=== PATIENT | female | born 1940 ===

== ENCOUNTER 2018-02-15 07:59 | Day surgery (SDC) | payer MEDICARE ==
[~2018-02-15 07:59] MED LIST: Buffered Lidocaine 0.9% SYRIN* 5 ML/SYR SYRINGE INTRADERM ONE
[2018-02-15] MEDS ORDERED: ceFAZolin 2 GM PREMIX (*) 2 GM/50 ML BAG IVPB ONE (08:19)
[2018-02-15] MEDS ORDERED: Midazolam* 1 MG/ML 2 ML VIAL (2 MG) ONE (08:33)
[2018-02-15] MEDS ORDERED: fentaNYL* 50 MCG/ML 2 ML VIAL (100 MCG VIAL) ONE (08:33)
[2018-02-15] MEDS ORDERED: Bupivacaine 0.25% SDV* 30 ML ONE (09:11)
[2018-02-15] MEDS ORDERED: Famotidine IV* 10 MG/ML 2 ML (20 mg) ONE (09:38)
[2018-02-15] MEDS ORDERED: Dexamethasone IV* 4 MG/ML 1 ML (4 MG) ONE (09:38)
[2018-02-15] MEDS ORDERED: Ketorolac INJ* 30 MG/ML 1 ML VIAL ONE (09:38)
[2018-02-15] MEDS ORDERED: Ondansetron ODT TAB* 4 MG ONE (09:38)
[2018-02-15] MEDS ORDERED: Propofol* 10 MG/ML 20 ML BTL IV PUSH ONE (09:38)
[2018-02-15] MEDS ORDERED: Acetaminophen TAB* 325 MG PO PRN (10:12)
[2018-02-15] MEDS ORDERED: DiMENhydriNATE IV* 50 MG/ML VIAL IV PUSH PRN (10:12)
[2018-02-15] MEDS ORDERED: Ondansetron ODT TAB* 4 MG PO PRN (10:12)
[2018-02-15] MEDS ORDERED: PROCHLORPERAZINE INJ 5 MG/ML 2 ML VIAL IV PRN (10:12)
[2018-02-15] MEDS ORDERED: Ondansetron INJ* 2 MG/ML VIAL IV PRN (10:12)
[2018-02-15] MEDS ORDERED: diPHENhydraMINE IV* 50 MG/ML 1 ml VIAL (BENADRYL) IV PRN (10:12)
[2018-02-15] MEDS ORDERED: fentaNYL* 50 MCG/ML 2 ML VIAL (100 MCG VIAL) IV PRN (10:12)
[2018-02-15] MEDS ORDERED: Nalbuphine* 20 MG/ML 1 ML VIAL IV PRN (10:12)
[2018-02-15] MEDS ORDERED: Naloxone* 0.4 MG/ML 1 ML VIAL IV PRN (10:12)
[2018-02-15] MEDS ORDERED: HYDROcodone/ACETAMIN 5-325 MG* 1 TAB PO PRN (10:12)
[2018-02-15 12:07] VITALS: BP 166/86
--- NOTE | 2018-02-16 07:08 | OP ---
DATE OF OPERATION: 02/15/18 - [facility] DATE OF : 38 SURGEON: Jonathan Gaspar MD DRAFTER PATENT: Kathryn Ackerman NP ANESTHESIOLOGIST: Dr. Júnior Mcarthur. ANESTHESIA: General with local. PRE-OP DIAGNOSIS: Ventral incisional hernia. POST-OP DIAGNOSIS: Ventral incisional hernia. OPERATIVE PROCEDURE: Open repair with mesh using a Bard 8.[address] mesh. ESTIMATED BLOOD LOSS: Minimal. SPECIMEN: None. WOUND CLASSIFICATION: I. COMPLICATIONS: None. DRAINS: None. DESCRIPTION OF PROCEDURE: Written informed consent was obtained, the abdomen was marked with indelible ink and preoperative antibiotics were administered. The patient was taken to the operating room and placed in the supine position. Sequential compression devices and a warming blanket were applied. General anesthesia was administered. The abdomen was prepped and draped in usual sterile fashion. Time-out verification was completed. The hernia in question was several fingerbreadths above the midline and was rather small, but it was an obvious bulge on physical examination. There had been a previous primary repair of an epigastric hernia in this area several years ago. Marcaine 0.25% with 1% lidocaine with epinephrine was infiltrated extensively, and a vertical incision was made at about 4 cm and carried down through the subcutaneous tissue. Here we encountered a protuberant amount of fat in the subcutaneous tissue and this was dissected down to the fascial defect, at the midline which appeared to be about 2 cm in diameter. We were able to reduce this fat easily and developed a preperitoneal space using a combination of blunt and sharp dissection circumferentially around the hernia. The fascia here appear to be intact without evidence of associated smaller hernias. I do not believe that the peritoneal cavity was entered. Once this space had been developed, and with the history of primary repair, a decision was made to proceed with placement of a 8.4 cm circular piece of Bard Ventrio ST mesh, which was placed appropriately oriented in the preperitoneal space and sutured in 4 locations circumferentially around the mesh to the anterior abdominal wall using horizontal mattress 0 Vicryl sutures and then the associated straps were then cut. The mesh sat in the position nicely without wrinkling or folds and was adherent to the anterior abdominal wall. Hemostasis was assured. The [place] fascia was closed in transverse orientation with interrupted 0 Vicryl suture. Additional Marcaine was infiltrated. The subcutaneous tissue was closed in layers of running 3-0 Vicryl suture. The skin was approximated with stapling device. Dry sterile dressings were applied. The patient tolerated the procedure well and was taken to the recovery room in stable condition. [id number] #: [id number] MTDD
== END 2018-02-15 12:26 | disposition home or self-care (01) ==
LOC: OR 07:59
PROVIDERS: ATTEND Surgery
DX: K43.2 Incisional hernia without obstruction or gangrene (principal); E11.9 Type 2 diabetes mellitus without complications; Z79.84 Long term (current) use of oral hypoglycemic drugs; I10 Essential (primary) hypertension; M19.90 Unspecified osteoarthritis, unspecified site; Z85.820 Personal history of malignant melanoma of skin
CPT/HCPCS: A9270-GY; C1781; J0690; J1100; J1885; J2250; J2704; J3010